=== PATIENT | female | born 1965 | race Caucasian/White ===

== ENCOUNTER 2024-08-10 22:58 | Emergency (ER) | payer OTHER ==
[2024-08-10] MEDS ORDERED: Fluorescein Opthalmic Strip ONE (23:10)
[2024-08-10] MEDS ORDERED: Tetracaine 0.5% PF 4 ML BOT ONE (23:10)
[2024-08-10] MEDS ORDERED: [UNRECOGNIZED DRUG - SUPPLY] ONE (23:11)
== END 2024-08-11 00:06 | disposition home or self-care (01) ==
LOC: BURERS 22:58
DX: H57.12 Ocular pain, left eye (principal); X58.XXXA Exposure to other specified factors, initial encounter; Y93.E9 Activity, other interior property and clothing maintenance; Y92.096 Garden or yard of other non-institutional residence as the place of occurrence of the external cause; Z55.6 Problems related to health literacy
CPT/HCPCS: 99283